=== PATIENT | male | born 1995 | race Two or more races ===

== ENCOUNTER 2022-03-02 19:28 | Emergency (ER) | payer SELFPAY ==
[~2022-03-02] VITALS: Ht 175.3 cm; Wt 63.8 kg
[2022-03-02 20:03] VITALS: BP 131/76
== END 2022-03-02 20:13 ==
LOC: ER 19:28
DX: F10.920 Alcohol use, unspecified with intoxication, uncomplicated (principal); F17.210 Nicotine dependence, cigarettes, uncomplicated; F12.10 Cannabis abuse, uncomplicated; V89.2XXA Person injured in unspecified motor-vehicle accident, traffic, initial encounter; Y93.89 Activity, other specified; Y92.89 Other specified places as the place of occurrence of the external cause; Y99.8 Other external cause status